=== PATIENT | male | born 1985 | race Two or more races ===

== ENCOUNTER 2024-12-05 18:47 | Emergency (ER) | payer OTHER, SELFPAY ==
--- NOTE | ~2024-12-05 | CT_ITS ---
CLINICAL HISTORY: acute on chronic neck pain rad down RUE CT cervical spine without contrast Comparison: None provided Findings: No acute fracture of the cervical spine. Schmorl's nodes noted including upper endplate of the C4. Straightening of the cervical lordosis. No significant listhesis. Ligament calcifications, disc osteophyte complexes, and facet arthropathy are multifocal without significant osseous spinal canal stenosis. Mild-minimal foraminal narrowing left-side predominant. No paraspinal hematoma or drainable paraspinal fluid collection. Pharynx calcifications are nonspecific and can be associated with chronic and/or prior infection and/or inflammation. Partially imaged lung apices are unremarkable. Subcutaneous edema is noted, including dependently. IMPRESSION: 1. Straightening of the cervical lordosis with multifocal facet arthropathy. 2. Small Schmorl's node of the upper endplate of C4. This document has been electronically signed by: Alex Layton MD on 12/05/2024 21:31:07
--- NOTE | 2024-12-05 18:51 | ED.GENADULT ---
HPI - General Adult General Chief complaint: Back Pain/Injury Stated complaint: Neck pain Time Seen by Provider: 12/05/24 20:15 Source: patient Limitations: no limitations History of Present Illness ED Provider: Rhiannon Quarles PA-C HPI narrative: 39-year-old male with a chronic neck pain presents with neck pain over the past week. Patient states his underlying chronic neck pain has been exacerbated over the past week. Pain originates posterior neck at the base of the upper back and radiates down the right upper extremity. Associated paresthesia. Denies weakness of upper extremity, headache, nausea vomiting. Denies preceding heavy lifting injury. Patient states he has not done any new activities or sustained a trauma, that could have precipitated his new symptoms. Patient states he has had MRIs in the past, has a tested physical therapy and has seen a e commerce specialist. Related Data Previous Rx's ?Medication ?Instructions ?Recorded ketorolac 10 mg tablet 10 mg PO Q6H PRN pain #20 tabs 12/05/24 methocarbamol 750 mg tablet 1,500 mg (2 x 750 mg) PO Q8H PRN 12/05/24 pain, moderate #24 tabs methylprednisolone 4 mg tablets in 4 mg PO QAM #21 ea 12/05/24 a dose pack (Medrol (Aidan)) Allergies Allergy/AdvReac Type Severity Reaction Status Date / Time No Known Allergies Allergy Verified 12/05/24 18:55 Review of Systems Review of Systems: Yes all other systems are reviewed and are negative Constitutional: Constitutional: Denies fatigue, Denies fever(s) and Denies headache(s) ENT: Denies dizziness, Denies headache(s) and Reports neck pain Cardiovascular: Cardiovascular: Denies chest pain and Denies dyspnea Respiratory: Respiratory: Denies dyspnea Gastrointestinal: Gastrointestinal: Denies abdominal pain, Denies nausea and Denies vomiting Musculoskeletal: Musculoskeletal: Reports back pain, Denies muscle weakness, Reports neck pain, Denies numbness, Reports radiating pain into limb and Reports tingling Neurologic: Denies dizziness, Denies headache(s), Denies numbness and Reports tingling Endocrine: Endocrine: Denies fatigue PMF Past Medical History Attestation statement: The following information was validated with the patient. Social History Social History Advance Directives: No Advance Directives Information Provided: No Physical Exam ED Vital Signs: Vital Signs - 24 hr 12/05/24 18:52 Temperature 98.4 F Pulse Rate 78 Respiratory Rate 18 Blood Pressure 135/81 Pulse Oximetry 98 Oxygen Delivery Method Room Air BMI result Body Mass Index 28.4 Const Other: Alert well-appearing eating fast food in his exam room Orientation/consciousness: patient oriented x3 Neck Neck: Yes full ROM and Yes no meningeal signs Resp Other: Nonlabored respirations Cardio Other: Normal peripheral perfusion Skin Other: Warm dry no rash Neuro General: patient oriented x3, gait normal, no meningeal signs, no focal motor deficits and CN's II-XI intact bilaterally Extrem Other: Strength 5/5 bilateral upper extremities Psych Other: Cooperative Course Course Course Narrative: This is a Rapid Medical Examination (RME) performed by Morris Mckinley PA-C in triage. Full HPI, ROS, assessment and treatment plan per primary provider in the Main ED. Hx: 39 yo M here for eval of pain from mid back extending down right arm and into neck x years, worsening over the last week. pain is worsening. has seen multiple providers/chiropractors for this, unremarkable MRIs. no new injury/trauma. Plan: ct Medical Decision Making Medical Decision Making [facility] Narrative: 39-year-old male with a chronic neck pain presents with neck pain over the past week. Patient states his underlying chronic neck pain has been exacerbated over the past week. Pain originates posterior neck at the base of the upper back and radiates down the right upper extremity. Associated paresthesia. Denies weakness of upper extremity, headache, nausea vomiting. Denies preceding heavy lifting injury. Patient states he has not done any new activities or sustained a trauma, that could have precipitated his new symptoms. Patient states he has had MRIs in the past, has a tested physical therapy and has seen a e commerce specialist. Problem: Chronic neck pain History: Per patient I have considered the following differential diagnoses: Cervical strain, cervical radiculopathy, VAD, meningitis Plan: Patient here with a exacerbation of his chronic pain. He is having radicular symptoms. Thought about VAD, however he is neurologically intact and he did not have a preceding heavy lifting injury. Thought about meningitis, however there are no meningeal signs on exam he has not been ill no fevers. CT of the neck was obtained, waiting on imaging. We will treat accordingly. I have independently reviewed the following tests: CT cervical spine: Findings: No acute fracture of the cervical spine. Schmorl's nodes noted including upper endplate of the C4. Straightening of the cervical lordosis. No significant listhesis. Ligament calcifications, disc osteophyte complexes, and facet arthropathy are multifocal without significant osseous spinal canal stenosis. Mild-minimal foraminal narrowing left-side predominant. No paraspinal hematoma or drainable paraspinal fluid collection. Pharynx calcifications are nonspecific and can be associated with chronic and/or prior infection and/or inflammation. Partially imaged lung apices are unremarkable. Subcutaneous edema is noted, including dependently. IMPRESSION: 1. Straightening of the cervical lordosis with multifocal facet arthropathy. 2. Small Schmorl's node of the upper endplate of C4. Differential Diagnosis Differential Diagnoses: The differential diagnosis associated with the presentation includes se mdm Admission/Observation Consideration of admission/observation: Escalation of care including admission/observation considered Not applicable Radiology Impression Discussion of test interpretation with radiology: I have reviewed the radiologist's reading. Discharge Plan Discharge Clinical Impression: Right cervical radiculopathy, Cervical arthritis Patient Disposition: Home, Self-Care Instructions: Osteoarthritis (ED), Cervical Radiculopathy (ED) Additional Instructions: You were found to have arthritic changes within your cervical spine at multiple junctures. This is the likely cause of your current radicular symptoms. See home care instructions. Take the steroid taper as directed, take the ketorolac as directed take it with food. Use the methocarbamol as needed for further pain, this is a muscle relaxant. It may cause drowsiness, do not drive or operate machinery while taking the medication. Continue to follow up with primary care, you would benefit from another round of physical therapy. It may be of benefit to return to your spine and firefighting equipment specialist to discuss the need for cortisone injections. Prescriptions: New methylprednisolone [Medrol (Aidan)] 4 mg tablets,dose pack 4 mg PO QAM Qty: 21 0RF Rx Instructions: Take per package instructions ketorolac 10 mg tablet 10 mg PO Q6H PRN (Reason: pain) Qty: 20 0RF Rx Instructions: maximum total duration of 5 days from all oral, intranasal, or parenteral formulations. The patient had an intramuscular dose of Toradol here in the emergency room. methocarbamol 750 mg tablet 1,500 mg PO Q8H PRN (Reason: pain, moderate) Qty: 24 0RF Print Language: Yi
[2024-12-05 18:52] VITALS: BP 135/81; PULSE 78; RESP 18; TEMP 36.9; O2SAT 98; BMI 28.4
--- OUTSIDE RECORDS SUMMARY | 2024-12-05 19:56 | XMS_ITS | Clinical Summary ---
Author Organization [facility] it Address [address] [place] [address] Care Team Providers Care Library Services Coordinator Name Role Phone Jared Feliz MD Primary Care Provider [phone] Surgical History Surgery Date Site/Laterality Comments OTHER SURGICAL HISTORY PROCEDURE: DENIES PREVIOUS SURGERY Medical History Medical History Date Comments Pilonidal sinus with abscess 05/31/2013 DX: Pilonidal sinus with abscess Family History Medical History Relation Name Comments Blindness Neg Hx Cataracts Neg Hx Glaucoma Neg Hx Macular degeneration Neg Hx Strabismus Neg Hx Relation Name Status Comments Brother 1 Alive Brother 2 Alive Brother 3 Alive Brother 4 Alive Brother 5 Alive Brother 6 Alive Father Alive Mother Alive Sister 1 Alive Sister 2 Alive Sister 3 Alive Sister 4 Alive Sister 5 Alive Social History Tobacco Use Types Packs/Day Years Used Date Smoking Tobacco: Former Smokeless Tobacco: Never Alcohol Use Standard Drinks/Week Comments No 0 (1 standard drink = 0.6 oz pur e alcohol) Sex and Gender Information Value Date Recorded Sex Assigned at Not on file Legal Sex Male 2:26 AM EST Gender Identity Not on file Sexual Orientation Not on file Obstetrics History Plan of Treatment Health Maintenance Due Date Last Done Comments Hepatitis B Vaccines (1 of 3 - 19+ 3-dose series) 06/23/2003 DTaP,Tdap,and Td Vaccines (2 - Td or Tdap) 08/24/2021 08/25/2011 Cholesterol Screening (Lipid Panel) 03/08/2022 HIV Screening 03/08/2022 Hepatitis C Screening 03/08/2022 Social Influencers of Health Screening 03/08/2022 Depression Screening 04/05/2024 COVID-19 Vaccine ( - 2023-2 5 season) 2024 Influenza Vaccine (#1) 2024 HIB Vaccines Aged Out No longer eligi ble based on patient's age to complete this topic HPV Vaccines Aged Out No longer eligi ble based on patient's age to complete this topic Hepatitis A Vaccines Aged Out No long er eligible based on patient's age to complete this topic IPV Vaccines Aged Out No longer eligi ble based on patient's age to complete this topic MMR Vaccines Aged Out No longer eligi ble based on patient's age to complete this topic Meningococcal ACWY Vaccine Aged Out N o longer eligible based on patient's age to complete this topic Meningococcal B Vaccine Aged Out No l onger eligible based on patient's age to complete this topic Pneumococcal Vaccine: Pediat rics (0 to 5 Years) and At-Risk Patients (6 to 49 Years) Aged Out No longer eligi ble based on patient's age to complete this topic RSV Immunization Patients Un lencho 20 months Aged Out No longer eligible b ased on patient's age to complete this topic Varicella Vaccines Aged Out No longer eligible based on patient's age to complete this topic Care Teams Library Services Coordinator Relationship Specialty Start Date End Date Jared Feliz MD [address] [place] [id number] PCP - General Internal Medicine 12/05/24
[2024-12-05 21:39] VITALS: BP 128/80; PULSE 70; RESP 14; TEMP 36.9; O2SAT 97
[2024-12-05 21:45] VITALS: BP 128/80; PULSE 70; RESP 14; TEMP 36.9; O2SAT 97
== END 2024-12-05 21:50 | disposition home or self-care (01) ==
PROVIDERS: Emergency Provider Emergency Medicine
DX: M47.22 Other spondylosis with radiculopathy, cervical region (principal); M54.2 Cervicalgia; R20.2 Paresthesia of skin
CPT/HCPCS: 72125; 96372; 99283; 99284; J1885

== ENCOUNTER → 2024-12-05 18:54 | Outpatient (BNV) | payer OTHER, SELFPAY | PROVIDERS: Emergency Provider Emergency Medicine; Visit Provider Radiology Neuroradiology | DX: M54.2 Cervicalgia (principal) | CPT/HCPCS: 72125 ==

== ENCOUNTER 2025-01-01 08:19 | Outpatient (REF) | payer OTHER, SELFPAY ==
[2025-01-01 13:30] LABS: MANUAL DIFF FLAG NO
[2025-01-01 13:45] LABS: Hematocrit 44.3 % (42.0-52.0); Hemoglobin 15.1 g/dl (14.0-18.0); Imm Gran Abs Auto 0.01 X10*3/uL (0.00-0.03); Imm Gran Pct Auto 0.3 % (0.0-0.4); Lymphocytes Absolute Auto 1.7 X10*3/uL (1.2-4.9); Mean Corpuscular HGB Conc 34.1 g/dl (31.0-36.0); Mean Corpuscular Hemoglobin 28.5 pg (27.0-33.0); Mean Corpuscular Volume 83.6 fL (80.0-98.0); NRBC Abs Auto 0.000 X10*3/uL (0.0-0.012); NRBC Pct Auto 0.0 /100WBC (0.0-0.2); Platelet Count 286 X10*3/uL (160-400); Red Blood Count 5.30 X10*6/uL (4.60-5.80); White Blood Count 4.0 X10*3/uL (4.8-10.8)
[2025-01-01 13:58] LABS: Appearance Urine Clear; Glucose Urine UA Negative (Negative); PH 6.5 (5.0-9.0); Specific Gravity - Urine 1.010 (1.005-1.025)
[2025-01-01 14:09] LABS: Hemoglobin A1C 149.3623 umol/L
[2025-01-01 14:16] LABS: Alanine Aminotransferase 33 U/L (0-40); Albumin Level 4.9 g/dL (3.5-5.0); Alkaline Phosphatase 79 U/L (39-117); Anion Gap 9 (12-20); Aspartate Amino Transferase 40 U/L (5-37); Blood Urea Nitrogen 22 mg/dL (9-16); Calcium 9.8 mg/dL (8.4-10.2); Carbon Dioxide 30 mmol/L (22-29); Chloride 106 mmol/L (96-108); Cholesterol 163 mg/dL (<200); Estimated Glomerular Filt Rate > 60; HDL Cholesterol 41 mg/dL (>40); Magnesium 2.0 mg/dL (1.6-2.6); Potassium 4.3 mmol/L (3.3-5.1); Sodium 141 mmol/L (135-145); Total Protein 7.6 g/dL (6.5-8.0); Triglycerides 138 mg/dL (<150)
[2025-01-01 14:39] LABS: Folate 9.4 ng/mL (> or = 4.0); Vitamin B12 448 pg/mL (200-900)
[2025-01-01 15:01] LABS: CT PCR Urine NOT DETECTED (Not Detect.); NG PCR Urine NOT DETECTED (Not Detect.)
[2025-01-02 05:13] LABS: Syphilis Screen Nonreactive (Nonreactive)
[2025-01-02 05:52] LABS: HBS Num1 > 1000.00 mIU/mL (0-7.99); HBsAGNum1 0.50 S/CO (0.00-0.99); HIV Num 1 0.08 S/CO (0.00-0.99); Hepatitis B Surface Antigen Negative (Negative); ~HepC Num1 0.09 S/CO (0.00-0.79); ~Hepatitis B Surface Antibody REACTIVE (Nonreactive); ~Hepatitis C Antibody Nonreactive (Nonreactive)
[2025-01-05 12:58] LABS: VITAMIN D (1,25 OH) D3 39 pg/mL; Vit D (1,25-Dihydroxy) Total 39 pg/mL (18-72); Vitamin D (1,25 OH) D2 <8 pg/mL
[2025-01-06 11:33] LABS: Chlamydia Pneumoniae Interp. Past Infection; Chlamydia Trachomatis IgA <1:16 titer (<1:16)
== END 2025-01-01 08:20 | disposition home or self-care (01) ==
LOC: HO.HKASLDS 08:19
PROVIDERS: PCP Student in an Organized Health Care Education/Training Program; Visit Provider Student in an Organized Health Care Education/Training Program
DX: Z76.89 Persons encountering health services in other specified circumstances (principal); Z13.9 Encounter for screening, unspecified; Z71.9 Counseling, unspecified; Z13.1 Encounter for screening for diabetes mellitus; Z13.220 Encounter for screening for lipoid disorders; Z13.6 Encounter for screening for cardiovascular disorders; Z11.3 Encounter for screening for infections with a predominantly sexual mode of transmission; Z11.4 Encounter for screening for human immunodeficiency virus [HIV]; R06.83 Snoring; R53.83 Other fatigue; R09.89 Other specified symptoms and signs involving the circulatory and respiratory systems; M54.2 Cervicalgia; M54.10 Radiculopathy, site unspecified; R03.0 Elevated blood-pressure reading, without diagnosis of hypertension; E66.3 Overweight; Z68.28 Body mass index [BMI] 28.0-28.9, adult
CPT/HCPCS: 80053; 80061; 81003; 82607; 82652; 82746; 83036; 83735; 84443; 85025; 86631; 86632; 86706; 86780; 86803; 87340; 87389; 87491; 87591; 99202

== ENCOUNTER 2025-01-01 08:19 | Outpatient (AMB) | payer OTHER, MEDICAID, SELFPAY ==
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
[2025-01-01 08:25] VITALS: BP 157/72; PULSE 68; RESP 16; TEMP 36.4; O2SAT 100; BMI 28.2
--- OUTSIDE RECORDS SUMMARY | 2025-01-01 08:36 | XMS_ITS | Clinical Summary ---
Author Organization [facility] it Address [address] [place] [address] Care Team Providers Care Ophthalmic Dispenser Name Role Phone Jared Feliz MD Primary Care Provider [phone] Surgical History Surgery Date Site/Laterality Comments OTHER [...] age to complete this topic Care Teams Ophthalmic Dispenser Relationship Specialty Start Date End Date Jared Feliz MD [address] [place] [id number] PCP - General Internal Medicine 12/05/24
== END 2025-01-01 09:00 | disposition home or self-care (01) ==
LOC: HO.HMCFMS 08:20
PROVIDERS: PCP Student in an Organized Health Care Education/Training Program; Visit Provider Student in an Organized Health Care Education/Training Program
DX: M54.2 Cervicalgia (principal); M54.10 Radiculopathy, site unspecified; E66.3 Overweight; Z68.28 Body mass index [BMI] 28.0-28.9, adult; R06.83 Snoring; R53.83 Other fatigue; R09.89 Other specified symptoms and signs involving the circulatory and respiratory systems; R03.0 Elevated blood-pressure reading, without diagnosis of hypertension

== ENCOUNTER 2025-01-15 09:26 | Outpatient (AMB) | payer OTHER, SELFPAY ==
[2025-01-15 09:27] VITALS: BP 124/74; PULSE 62; RESP 16; TEMP 36.8; O2SAT 96; BMI 28.0
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
--- OUTSIDE RECORDS SUMMARY | 2025-01-15 09:29 | XMS_ITS | Clinical Summary ---
[facility] Address [address] [place] [address] Care Team Providers Care Non Destructive Evaluation Technician Name Role Phone Jared Feliz MD Primary Care Provider Surgical History Surgery Date Site/Laterality Comments OTHER [...] of 3 - 19+ 3-dose series) 06/23/2003 HPV Vaccines (1 - 3-dose SCD M series) 06/23/2011 DTaP,Tdap,and Td Vaccines (2 - Td or Tdap) 08/24/2021 08/25/2011 Cholesterol Screening (Lipid Panel) 03/08/2022 HIV Screening 03/08/2022 Hepatitis C Screening 03/08/2022 Social Influencers of Health Screening 03/08/2022 Depression Screening 04/05/2024 COVID-19 Vaccine ( - 2023-2 5 season) 2024 Influenza Vaccine (#1) 2024 RSV Immunization Adult Patie nts (1 - 1-dose 75+ series) 06/23/2059 HIB Vaccines Aged Out No longer eligi [...] age to complete this topic Care Teams Non Destructive Evaluation Technician Relationship Specialty Start Date End Date Jared Feliz MD [address] [place] [id number] PCP - General Internal Medicine 12/05/24
== END 2025-01-15 09:54 | disposition home or self-care (01) ==
LOC: HO.HMCFMS 09:26
PROVIDERS: PCP Student in an Organized Health Care Education/Training Program; Visit Provider Student in an Organized Health Care Education/Training Program
DX: M47.22 Other spondylosis with radiculopathy, cervical region (principal); N18.1 Chronic kidney disease, stage 1; R73.03 Prediabetes

== ENCOUNTER → 2025-01-15 09:26 | Outpatient (BNVA) | payer OTHER, SELFPAY | PROVIDERS: Visit Provider Student in an Organized Health Care Education/Training Program | DX: M47.22 Other spondylosis with radiculopathy, cervical region (principal); N18.1 Chronic kidney disease, stage 1; R73.03 Prediabetes; Z13.30 Encounter for screening examination for mental health and behavioral disorders, unspecified; Z13.39 Encounter for screening examination for other mental health and behavioral disorders | CPT/HCPCS: 99212 ==